=== PATIENT | male | born 1995 | race Caucasian/White ===

== ENCOUNTER 2019-09-26 22:45 | Emergency (ER) | payer OTHER ==
[~2019-09-26] VITALS: Ht 185.4 cm; Wt 113.4 kg
[2019-09-27] MEDS ORDERED: NORCO 5-325 TA1 EAC1 PO (00:41)
[2019-09-27] MEDS ORDERED: KEFLEX500 M1 PO (00:41)
[2019-09-27 00:52] VITALS: BP 136/64
== END 2019-09-27 00:53 | disposition home or self-care (01) ==
LOC: M.ERS 22:45
DX: S01.511A Laceration without foreign body of lip, initial encounter (principal); S01.311A Laceration without foreign body of right ear, initial encounter; F17.210 Nicotine dependence, cigarettes, uncomplicated; Z88.8 Allergy status to other drugs, medicaments and biological substances; Y04.0XXA Assault by unarmed brawl or fight, initial encounter; Y93.89 Activity, other specified; Y92.89 Other specified places as the place of occurrence of the external cause; Y99.8 Other external cause status

== ENCOUNTER 2019-10-03 08:50 | Emergency (ER) | payer OTHER ==
[~2019-10-03] VITALS: Ht 185.4 cm; Wt 113.4 kg
[~2019-10-03 08:50] MED LIST: KEFLEX500 M1 PO; NORCO 5-325 TA1 EAC1 PO
[2019-10-03 08:58] VITALS: BP 150/87
== END 2019-10-03 09:23 | disposition home or self-care (01) ==
LOC: M.ERS 08:50
DX: S01.511D Laceration without foreign body of lip, subsequent encounter (principal); S01.311D Laceration without foreign body of right ear, subsequent encounter; F17.210 Nicotine dependence, cigarettes, uncomplicated; X58.XXXD Exposure to other specified factors, subsequent encounter

== ENCOUNTER 2019-11-05 08:25 | Emergency (ER) | payer OTHER ==
[~2019-11-05] VITALS: Ht 182.9 cm; Wt 113.4 kg
[2019-11-05 08:49] LABS: URINE BLOOD 1+ (Negative); URINE CLARITY CLEAR; URINE COLOR YELLOW; URINE GLUCOSE-RANDOM NEGATIVE (Negative); URINE KETONES NEGATIVE (Negative); URINE LEUKOCYTES-REFLEX NEGATIVE (Negative); URINE NITRITE-REFLEX NEGATIVE (Negative); URINE PROTEIN TRACE (Negative); URINE SPECIFIC GRAVITY >= 1.030 (1.005-1.030); URINE UROBILINOGEN 0.2 E.U./dl (0.2-1.0)
[2019-11-05 08:50] LABS: ICTOTEST (BILI CONFIRMATORY) Negative (Negative); URINE BILIRUBIN 1+ (Negative)
[2019-11-05 08:59] LABS: BACTERIA-REFLEX 1-9 Few /HPF (None Seen); CASTS None Seen /LPF (None Seen); CRYSTALS None Seen /LPF (None Seen); MUCUS 4-6 Moderate strn/LPF (None Seen); SQUAMOUS 0-3 Few /LPF (0-3); URINE RBC 0-2 Rare /HPF (0-2); URINE WBC-REFLEX 0-5 Rare /HPF (0-5)
[2019-11-05 09:32] LABS: CREATININE 1.4 mg/dL (0.6-1.3)
[2019-11-05 09:33] LABS: ABSOLUTE EOSINOPHILS 0.1 thou/uL (0.0-0.7); ABSOLUTE MONOCYTES 0.8 thou/uL (0.0-1.2); ABSOLUTE NEUTROPHILS 4.3 thou/uL (1.6-8.1); BASOPHILS 0.6 %; EOSINOPHILS 0.7 %; HEMATOCRIT 47.4 % (42.0-52.0); HEMOGLOBIN 16.7 gm/dL (14.0-18.0); LYMPHOCYTES 27.8 %; MCH 31.4 pg (26.0-34.0); MCHC 35.2 g/dL (28.0-37.0); MCV 89.3 fL (80.0-100.0); MONOCYTES 11.1 %; MPV 7.3 fl. (7.2-11.1); NUCLEATED RBCS 0 /100WBC; PLATELET COUNT* 273 thou/uL (150-400); POLYS 59.8 %; RBC 5.31 mil/uL (4.50-6.00); WBC 7.2 thou/uL (4.0-11.0)
[2019-11-05 09:36] LABS: ALBUMIN 4.4 g/dL (3.4-5.0); TOTAL BILIRUBIN 1.1 mg/dL (<0.1-1.0); TOTAL PROTEIN 8.1 g/dL (6.4-8.2)
[2019-11-05] MEDS ORDERED: CIPROFLOXACIN500 M1 PO (09:49)
[2019-11-05 09:58] VITALS: BP 151/74
== END 2019-11-05 09:59 | disposition home or self-care (01) ==
LOC: M.ERS 08:25
PROVIDERS: Family Medicine
DX: R19.7 Diarrhea, unspecified (principal); F17.210 Nicotine dependence, cigarettes, uncomplicated; Z88.1 Allergy status to other antibiotic agents